=== PATIENT | male | born 1985 | race Caucasian/White ===

== ENCOUNTER 2016-05-27 08:30 | Emergency (ER) | payer BC ==
[~2016-05-27 08:30] MED LIST: Sodium Chloride 0.9% 1,000 ML BAG ONE
[2016-05-27] MEDS ORDERED: Ondansetron HCl/PF 4 MG/2 ML Vial ONE (08:52)
[2016-05-27 09:07] LABS: #Basophils 0.1 thou/uL (0.0-0.2); #Eosinphils 0.5 thou/uL (0.0-0.7); #Lymphocytes 2.2 thou/uL (1.20-3.40); #Monocytes 0.4 thou/uL (0.11-0.59); #Neutrophils 2.6 thou/uL (1.40-6.50); %Basophils 1.4 % (0.0-1.0); %Eosinophils 8.4 % (0.0-10.0); %Lymphocytes 38.1 % (21.0-51.0); %Monocytes 6.6 % (0.0-10.0); %Neutrophils 45.5 % (42.0-75.0); Hemoglobin 16.5 g/dL (14.0-18.0); Mean Corpuscular HGB CONC 34.7 g/dL (32.0-36.0); Mean Corpuscular Hemoglobin 30.5 pg (27.0-31.0); Mean Platelet Volume 7.5 fL (7.4-10.4); Platelet Count 241 thou/uL (130-400); RBC Distribution Width 11.1 % (11.5-14.5); Red Blood Cell (RBC) Count 5.41 mill/uL (4.70-6.10); White Blood Cell (WBC) Count 5.8 thou/uL (4.8-10.8)
[2016-05-27 09:23] LABS: ALT (SGPT) 161 U/L (0-55); AST (SGOT) 54 U/L (5-34); Albumin 4.6 g/dL (3.5-5.0); Alkaline Phosphatase 73 U/L (40-150); Anion Gap 18 mmol/L (10-20); BUN (Urea Nitrogen) 15 mg/dL (8.9-20.6); Bilirubin, Total 0.3 mg/dL (0.2-1.2); Calc. Creatinine Clearance 0 mL/min (70-130); Calcium 10.1 mg/dL (7.8-10.44); Carbon Dioxide 22 mmol/L (22-29); Chloride 107 mmol/L (98-107); Estimated GFR-MDRD 73; Globulin 3.1 g/dL (2.4-3.5); Glucose 108 mg/dL (70-105); Potassium 4.3 mmol/L (3.5-5.1); Protein, Total 7.7 g/dL (6.0-8.3); Sodium 143 mmol/L (136-145)
[2016-05-27] MEDS ORDERED: Ketorolac Tromethamine 30 MG/ML VIAL ONE (10:13)
--- NOTE | 2016-05-27 10:29 | CT ---
CT ABDOMEN AND PELVIS WITHOUT IV CONTRAST 05/27/16 HISTORY: Generalized abdominal pain. FINDINGS: There are multiple nonobstructing bilateral renal calculi, the largest measuring up to 3 mm in each kidney. There is mild caliectasis on the right without overt hydronephrosis. There is mild perinephr ic stranding seen involving the proximal right ureter and right ureter is minimally dilated with re spect to the left ureter. There is a 3 mm calculus seen at the right UVJ. No left ureteral calculus is seen. The appendix is visualized and normal in caliber. The lung bases, liver, spleen, pancreas, bilateral adrenal glands, and incompletely distended urinary bladder demonstrate a grossly normal nonenhanced CT appearance. No free fluid, fluid collection, or lymphadenopathy is seen in the abdomen or pelvis . IMPRESSION: 1. Partially obstructing right UVJ calculus. There is mild caliectasis and mild prominence of t he right ureter with respect to the left. 2. Nonobstructing bilateral renal calculi. 3. No CT evidence of appendicitis. POS: ANGELINA
[2016-05-27 11:27] LABS: Bilirubin Negative (Negative); Blood, Urine Negative (Negative); Clarity Clear (Clear); Glucose, Urine (Dipstick) Negative (Negative); Leukocyte Negative (Negative); Nitrite Negative (Negative); Protein, Urine (Dipstick) Trace mg/dL (Neg-Trace); Urobilinogen 0.2 mg/dL (0.2-1.0)
[2016-05-27 11:31] LABS: Specific Gravity, Urine 1.025 (1.002-1.036)
--- NOTE | 2016-05-27 13:38 | PICIS ---
[facility] EMERGENCY RECORD COMMUNICATIONS (10:15 AWAT) COMMUNICATIONS: Notes: DR HANSON ONTO THE PHONE NOW WITH DR RICCI, UROLOGY TROUBLE OPERATOR FOR [facility]... PHONE CONSULT DONE. WE WILL CONTINUE TO HELP GET PT'S PAIN UNDER CONTROL HERE, AND PT CAN F/U WITH DR RICCI IF NEEDED ONCE DISCHARGED FROM HERE. 30MG TORADOL GIVEN IVP APPROX 2 MINUTES AGO, SO WE WILL CONTINUE TO MONITOR. PT'S SPOUSE IN ROOM. TRIAGE (FriMay 27, 2016 08:39 JPER) PATIENT: NAME: Pablo Tyler, AGE: 30, GENDER: male, : FriAug 18, 1985, TIME OF GREET: FriMay 27, 2016 08:30, PREFERRED LANGUAGE: [place]se, RACE: C, ECODE BILLING MAP: [facility], SSN: [id number], Zip Code: [address], KG WEIGHT: 90.72 (est.), PHONE: , , , PERSON ID: [id number], PCP: NO PCP. (FriMay 27, 2016 08:39 JPER) COMPLAINT: ABDOMINAL PAIN. (FriMay 27, 2016 08:39 JPER) ADMISSION: URGENCY: 3 Urgent, ADMISSION SOURCE: Home, TRANSPORT: Walk-in, BED: ED -05. (FriMay 27, 2016 08:39 JPER) ASSESSMENT: Assessment: RLQ PAIN X 1 HOUR, Symptoms began 1 hour ago. (FriMay 27, 2016 08:39 JPER) PAIN: Patient complains of pain described as, cramping, on a scale 0-10 patient rates pain as 10, Pain is constant, No aggravating factors, No relieving factors. (FriMay 27, 2016 08:39 JPER) SIRS SCORING: Heart Rate 55-109 (0), Temp range 96.8-101.1 (0), respiratory rate 12-24 (0), Mental Status altered: no (0). (FriMay 27, 2016 08:39 JPER) TRIAGE SCREENING: Patient denies suicidal ideation, Patient denies presence of domestic violence. (FriMay 27, 2016 08:39 JPER) PROVIDERS: TRIAGE NURSE: Isi Holden RN. (FriMay 27, 2016 08:39 JPER) VITAL SIGNS: BP 144/80, Pulse 73, Resp 18, O2 Sat 99, on Room Air, Time 05/27/2016 08:37. (08:37 JPER) KNOWN ALLERGIES Penicillins CURRENT MEDICATIONS (08:40 JPER) None VITAL SIGNS VITAL SIGNS: BP: 144/80, Pulse: 73, Resp: 18, O2 sat: 99 on Room Air, Time: 05/27/2016 08:37. (08:37 JPER) BP: 116/53, Pulse: 73, Resp: 16, Temp: 98.4 (Tympanic), O2 sat: 99 on Room Air, Time: 05/27/2016 09:00. (09:00 JPER) BP: 152/79, Pulse: 72, Resp: 14, O2 sat: 99 on Room Air, Time: 05/27/2016 09:30. (09:30 JPER) BP: 131/67, Pulse: 66, Resp: 14, Temp: 98.2 (Tympanic), O2 sat: 99 on Room Air, Time: 05/27/2016 10:00. (10:00 JPER) Pain: 5, Time: 05/27/2016 10:10. (10:10 AWAT) &a-1R&a+25V*p+0X*y0552I*c152B*c15G*c2P*p-0X&a-25V&a+1RName: Pablo Tyler : M30 MedRec: [id number] AcctNum: [id number] Prepared: FriMay 27, 2016 11:33 by Interface Page 1 of 9 pMD [facility] EMERGENCY RECORD Pain: 0, Time: 05/27/2016 10:35. (10:35 AWAT) BP: 118/65, Pulse: 57, Resp: 14, Temp: 98.2 (Tympanic), Pain: 0, O2 sat: 100 on Room Air, Time: 05/27/2016 10:30. (10:30 JPER) BP: 134/41, Pulse: 61, Resp: 16, Temp: 98.2 (Tympanic), Pain: 0, O2 sat: 100 on Room Air, Time: 05/27/2016 11:00. (11:00 JPER) NURSING ASSESSMENT: ABDOMEN (09:17 JPER) CONSTITUTIONAL: Patient arrives ambulatory, Gait steady, History obtained from patient, Patient appears, in distress due to pain, Patient cooperative, Patient alert, Oriented to person, place and time, Skin warm, Skin dry, Skin normal in color, Mucous membranes pink, Mucous membranes moist, Patient is well-groomed, Patient complains of RLQ PAIN X 1 HOUR. PAIN: burning pain, sharp pain, to the right lower quadrant, on a scale 0-10 patient rates pain as 10, Pain exacerbated by nothing, Nothing has been tried to alleviate the pain. NONVERBAL PAIN: Non Verbal pain assessment findings include: Non-verbal expressions of pain at rest (1), Non-Verbal complaints present with movement (1), Facial Grimaces present at rest (1), Facial grimaces present with movement (1), Bracing present at rest (1), Bracing present with movement (1), Restlessness present at rest (1), Restlessness present with movement (1), Rubbing present at rest (1), Rubbing present with movement (1), Result: 10. ABDOMEN: tender, diffusely, Associated with nausea. GENITOURINARY MALE: Notes: DEFFERED. NOTES: Emotional support needed and given, Patient tolerated procedure well. SAFETY: Side rails up, Cart/Stretcher in lowest position, Call light within reach, Hospital ID band on. NURSING PROCEDURE: DISCHARGE NOTE (11:15 JPER) DISCHARGE: Patient discharged to home, in a wheelchair, family driving, accompanied by //partner, Summary of Care printed/ provided, Patient requested and was provided an electronic copy of Discharge Instructions, Transition record given to patient, Discharge instructions given to patient, Above person(s) verbalized understanding of discharge instructions and follow-up care, Patient instructed not to drive home, Patient treated and evaluated by physician. BELONGINGS: Belongings remain with patient, Valuables remain with patient. NOTES: Emotional support needed and given, Patient tolerated procedure well. NURSING PROCEDURE: IV PATIENT IDENITIFIER: Patient's identity verified by patient stating name, Patient's identity verified by hospital ID brailda. &a-1R&a+25V*p+0X*p9054K*c152B*c15G*c2P*p-0X&a-25V&a+1RName: Pablo Tyler : M30 MedRec: [id number] AcctNum: [id number] Prepared: FriMay 27, 2016 11:33 by Interface Page 2 of 9 pMD [facility] EMERGENCY RECORD (08:50 JPER) Patient's identity verified by patient stating name, Patient's identity verified by hospital ID bracelmindy. (11:15 JPER) IV SITE 1: IV therapy indicated for hydration, IV therapy indicated for medication administration, IV established, to the right hand, using a 20 gauge catheter, in one attempt, IV site prepped with CHLOROPREP, Saline lock established, Labs drawn at time of placement, labeled in the presence of the patient and sent to lab. (08:50 JPER) IV SITE 2: IV therapy indicated for hydration, IV therapy indicated for medication administration, IV established, to the left wrist, using a 20 gauge catheter, in one attempt, IV site prepped with CHLORAPREP, Saline lock established, Flushed with normal saline (mls): 10, Notes: iv #1 has been dislodged & removed with 100% cath intact. (10:04 AWAT) FOLLOW-UP SITE 1: After procedure, sterile transparent dressing applied. (08:50 JPER) After procedure, no drainage at IV site, After procedure, no swelling at IV site, After procedure, no redness at IV site, IV discontinued, due to patient being discharged, catheter intact. (11:15 JPER) FOLLOW-UP SITE 2: After procedure, sterile transparent dressing applied. (10:05 AWAT) NOTES: Emotional support needed and given, Patient tolerated procedure well. (11:15 JPER) SAFETY: Side rails up, Cart/Stretcher in lowest position, Family at bedside, Call light within reach, Hospital ID band on. (08:50 JPER) NURSING PROCEDURE: NURSE NOTES NURSES NOTES: Notes: Pt stood at side of bed trying to urinate per urinal, but not successful. He has had approx. 750ml of NS in. He asked if he could have any more pain meds to get rid of all of the pain. Pt advised that 2m of Dilaudid was a very big dose & we will monitor his pain. Pt also advised by Dr Hanson that we may not be able to completely dissolve his pain, but we will medicate him to help make it more tolerable. (09:32 AWAT) Notes: CONT UNABLE TO PRODUCE UA; ERMD NOTIFIED; REQ CONSULT WITH UROLOGY TROUBLE OPERATOR DR RICCI. (10:11 JPER) NURSING PROCEDURE: TRANSPORT TO TESTS PATIENT IDENTIFIER: Patient actively involved in identification process, Patient's identity verified by patient stating name, Patient's identity verified by patient stating date, Patient's identity verified by hospital ID bracelet, Patient's identity verified by family member. (09:40 AWAT) TRANSPORT TO TESTS: Patient transported to CT scan, via cart, Accompanied by x-ray photo optics technician. (09:40 AWAT) FOLLOW-UP: After procedure, patient returned to emergency department. (09:53 AWAT) NOTES: Patient tolerated procedure well. (09:40 AWAT) SAFETY: Side rails up, Cart/Stretcher in lowest position, Family at bedside, Call light within reach, Hospital ID band on, Physician &a-1R&a+25V*p+0X*m0551K*c152B*c15G*c2P*p-0X&a-25V&a+1RName: Pablo Tyler : M30 MedRec: [id number] AcctNum: [id number] Prepared: FriMay 27, 2016 11:33 by Interface Page 3 of 9 pMD [facility] EMERGENCY RECORD notified of above findings. (09:40 AWAT) ORDER DETAILS Order Name: CBC with Differential, Status: Active, Time: 09:00 05/27/2016, User: BROWN, - Ordered for: MD Hanson Alberto, - Entered by: MD Hanson Alberto - FriMay 27, 2016 09:00, - Quantity: 1, Order Name: Comprehensive Metabolic Panel, Status: Active, Time: 09:00 05/27/2016, User: BROWN, - Ordered for: MD Hanson Alberto, - Entered by: MD Hanson Alberto - FriMay 27, 2016 09:00, - Quantity: 1, Order Name: CT Abdomen Pelvis WO Con, Status: Active, Time: 09:36 05/27/2016, User: BROWN, - Ordered for: MD Hanson Alberto, - Entered by: MD Hanson Alberto - [facility] May 27, 2016 09:36, - Quantity: 1, Order Name: Urinalysis w/ Rflx Microscopic, Status: Active, Time: 11:05 05/27/2016, User: FEROZ, - Ordered for: MD Hanson Alberto, - Entered by: MARIAN Holden Jana - FriMay 27, 2016 11:05, - Quantity: 1, Order Name: Urinalysis with Microscopic, Status: Canceled, Time: 10:58 05/27/2016, User: FEROZ, - Ordered for: MD Hanson Alberto, - Entered by: MD Hanson Alberto - [facility] May 27, 2016 09:01, - Reason for Cancel: -- Reason --, - Quantity: 1. MEDICATION ADMINISTRATION SUMMARY Drug Name: ketorolac injection, Dose Ordered: 30 mg, Route: IV Push, Status: Given, Time: 10:15 05/27/2016, Drug Name: HYDROmorphone intravenous, Dose Ordered: 1 mg, Route: IV Push, Status: Given, Time: 09:19 05/27/2016, Drug Name: Dilaudid injection, Dose Ordered: 1 mg, Route: IV Push, Status: Given, Time: 09:05 05/27/2016, Drug Name: ondansetron, Dose Ordered: 4 mg, Route: IV Push, Status: Given, Time: 09:04 05/27/2016, Drug Name: Normal Saline, Dose Ordered: 1000 mL, Route: IV Fluid Infusion, Status: Given, Time: 09:00 05/27/2016, Detailed record available in Medication Service section. MEDICATION SERVICE Dilaudid injection: Order: Dilaudid injection (hydromorphone HCl) - Dose: 1 mg : IV Push Schedule: Now Ordered by: Sean Hanson MD Entered by: Sean Hanson MD FriMay 27, 2016 08:57 &a-1R&a+25V*p+0X*h1681L*c152B*c15G*c2P*p-0X&a-25V&a+1RName: Pablo Tyler : M30 MedRec: [id number] AcctNum: [id number] Prepared: FriMay 27, 2016 11:33 by Interface Page 4 of 9 pMD [facility] EMERGENCY RECORD Documented as given by: Isi Holden RN FriMay 27, 2016 09:05 Patient, Medication, Dose, Route and Time verified prior to administration. Amount given: 1MG, IV SITE #1 IVP, subsequent different medication, Slowly, Catheter placement confirmed via flush prior to administration, IV site without signs or symptoms of infiltration during medication administration, No swelling during administration, No drainage during administration, IV flushed after administration, Correct patient, time, route, dose and medication confirmed prior to administration, Patient advised of actions and side-effects prior to administration, Allergies confirmed and medications reviewed prior to administration, Administered by ANDREA FONSECA. HYDROmorphone intravenous: Order: HYDROmorphone intravenous (hydromorphone HCl) - Dose: 1 mg : IV Push Schedule: Now Ordered by: Sean Hanson MD Entered by: Sean Hanson MD FriMay 27, 2016 09:16 Documented as given by: Isi Holden RN FriMay 27, 2016 09:19 Patient, Medication, Dose, Route and Time verified prior to administration. Amount given: 1MG, IV SITE #1 IVP, repeat same medication, Slowly, Catheter placement confirmed via flush prior to administration, IV site without signs or symptoms of infiltration during medication administration, No swelling during administration, No drainage during administration, IV flushed after administration, Correct patient, time, route, dose and medication confirmed prior to administration, Patient advised of actions and side-effects prior to administration, Allergies confirmed and medications reviewed prior to administration, Administered by ANDREA FONSECA. ketorolac injection: Order: ketorolac injection (ketorolac tromethamine) - Dose: 30 mg : IV Push Schedule: Now Ordered by: Sean Hanson MD Entered by: Sean Hanson MD FriMay 27, 2016 10:15 Documented as given by: Pablo Love RN FriMay 27, 2016 10:15 Patient, Medication, Dose, Route and Time verified prior to administration. Amount given: 30MG, IV SITE #1 IVP, subsequent different medication, Slowly, Catheter placement confirmed via flush prior to administration, IV site without signs or symptoms of infiltration during medication administration, No swelling during administration, No drainage during administration, IV flushed after administration, Correct patient, time, route, dose and medication confirmed prior to administration, Patient advised of actions and side-effects prior to administration, Allergies confirmed and medications reviewed prior to administration, Administered by RADHA FONSECA, Patient in position of comfort, Side rails up, Cart in lowest position, Family at bedside. Normal Saline: Order: Normal Saline (0.9 % sodium chloride) - Dose: 1000 mL : IV Fluid Infusion Schedule: Bolus Ordered by: Sean Hanson MD &a-1R&a+25V*p+0X*m6962R*c152B*c15G*c2P*p-0X&a-25V&a+1RName: JaysonPablo de la garza : M30 MedRec: [id number] AcctNum: [id number] Prepared: FriMay 27, 2016 11:33 by Interface Page 5 of 9 D [facility] EMERGENCY RECORD Entered by: Sean Hanson MD FriMay 27, 2016 08:58 Documented as given by: Isi Holden RN FriMay 27, 2016 09:00 Patient, Medication, Dose, Route and Time verified prior to administration. Amount given: 1000ML, IV SITE #1 IV fluids established for hydration, IV SITE #1 into right hand, IV SITE #1 1st bag hung, amount 1 Liter hung, IV SITE #1 bolus of 1000 ml established, IV SITE #1 Rate of bolus, wide open, via primary tubing, Catheter placement confirmed via flush prior to administration, IV site without signs or symptoms of infiltration during medication administration, No swelling during administration, No drainage during administration, IV flushed after administration, Correct patient, time, route, dose and medication confirmed prior to administration, Patient advised of actions and side-effects prior to administration, Allergies confirmed and medications reviewed prior to administration, Administered by ANDREA FONSECA, Patient in position of comfort, Side rails up, Cart in lowest position. : Follow Up : Response assessment performed, No signs or symptoms of allergic reaction noted, Site inspection shows, No swelling at administration site, No drainage at administration site, No bleeding at site, No bruising noted at site, _IV SITE #1:_, IV fluid infusion discontinued, on FriMay 27, 2016 10:21, Total fluid hydration time IV site 1 1 hour, 25 minutes, ., Total amount infused: 1000ML, IV Line flushed after administration, Advised not to ambulate without assistance, Patient in position of comfort, Side rails up, Cart in lowest position, Family at bedside. (10:21 AWAT) ondansetron: Order: ondansetron - Dose: 4 mg : IV Push Schedule: Now Ordered by: Sean Hanson MD Entered by: Sean Hanson MD FriMay 27, 2016 08:57 Documented as given by: Isi Holden RN FriMay 27, 2016 09:04 Patient, Medication, Dose, Route and Time verified prior to administration. Amount given: 4MG, IV SITE #1 IVP, initial medication, Slowly, Catheter placement confirmed via flush prior to administration, IV site without signs or symptoms of infiltration during medication administration, No swelling during administration, No drainage during administration, IV flushed after administration, Correct patient, time, route, dose and medication confirmed prior to administration, Patient advised of actions and side-effects prior to administration, Allergies confirmed and medications reviewed prior to administration, Administered by ANDREA FONSECA. HPI ABDOMINAL PAIN (09:02 ALMO) CHIEF COMPLAINT: Patient presents for evaluation of abdominal pain. HISTORIAN: History provided by patient. LOCATION MALE: Symptoms are localized, most severe in the right lower quadrant, Radiation, to the groin. QUALITY: Pain is sharp in nature, described as unbearable. SEVERITY: Maximum severity of symptoms severe, Currently symptoms are &a-1R&a+25V*p+0X*s9039J*c152B*c15G*c2P*p-0X&a-25V&a+1RName: Pablo Tyler : M30 MedRec: [id number] AcctNum: [id number] Prepared: FriMay 27, 2016 11:33 by Interface Page 6 of 9 pMD [facility] EMERGENCY RECORD severe. TIME COURSE: Sudden onset of symptoms, Date and time of onset was 05/27/2016 07:30. ASSOCIATED WITH: Associated with diarrhea, Number of times: 2, for 1 day, No associated fever, Associated with flank pain, Associated with groin pain, No associated hematuria, No associated melena, Associated with nausea. RELIEVED BY: Patient's condition relieved by nothing. EXACERBATED BY: Patient's condition exacerbated by nothing. ROS CONSTITUTIONAL: Historian denies chills, denies fever. (09:05 ALMO) GI: Historian denies abdominal pain, reports anorexia, reports diarrhea, reports nausea, reports vomiting. (09:05 ALMO) GENITOURINARY MALE: Historian denies dysuria, denies hematuria. (09:05 ALMO) SKIN: diaphoretic. (09:05 ALMO) NEUROLOGIC: Negative neurologic review of systems. (09:05 ALMO) NOTES: All systems reviewed, negative except as described above. (09:07 ALMO) PAST MEDICAL HISTORY (FriMay 27, 2016 08:39 JPER) MEDICAL HISTORY: No past medical history, Flu vaccine up to date, Tetanus immunization up to date, Pneumococcal vaccine up to date. MALE SURGICAL HISTORY: Patient has no surgical history. PSYCHIATRIC HISTORY: Notes: DENIES. SOCIAL HISTORY: Patient denies alcohol use, Patient denies drug use, Patient has no smoking history. PHYSICAL EXAM (09:08 ALMO) CONSTITUTIONAL: Vital Signs Reviewed, Patient afebrile, Pulse normal. HEAD: Head exam included findings of head atraumatic, normocephalic. EYES: Pupils equally round and reactive to light. ENT: ENT exam normal. NECK: Neck exam included findings of normal range of motion, Thyroid normal, no cervical adenopathy. RESPIRATORY CHEST: Respiratory exam included findings of no respiratory distress, Breath sounds clear. CARDIOVASCULAR: Cardiovascular exam included findings of heart rate regular rate and rhythm, Heart sounds normal. ABDOMEN MALE: Abdominal exam included findings of abdomen tender, to the right lower quadrant, to McBurney's point, Bowel sounds normal, Liver normal, Spleen normal, no distension, McBurney's point tender, no peritoneal signs, no umbilical hernia. GENITOURINARY MALE: External genitalia normal, Epididymis normal, Testicles normal. &a-1R&a+25V*p+0X*x0286D*c152B*c15G*c2P*p-0X&a-25V&a+1RName: JaysonPablo de la garza : M30 MedRec: [id number] AcctNum: [id number] Prepared: FriMay 27, 2016 11:33 by Interface Page 7 of 9 pMD [facility] EMERGENCY RECORD BACK: Back exam included findings of normal inspection, range of motion normal, Costovertebral angle tenderness, on the right. NEURO: Neuro exam findings include patient oriented to person, place and time, no focal motor deficits, no focal sensory deficits. SKIN: Skin exam included findings of skin, Skin cool, and, diaphoretic, and normal in color. EVENTS TRANSFER: Triage to Emergency Main ED -05. (08:39 JPER) Removed from Emergency Main ED -05. (11:31 JPER) PROBLEM LIST No recorded problems DIAGNOSIS (10:52 ALMO) FINAL: PRIMARY: CALCULUS OF URETER. DISPOSITION PATIENT: Disposition Type: Discharge, Disposition: *Discharge Home. (10:52 ALMO) Patient left the department. (11:31 JPER) INSTRUCTION (10:55 ALMO) DISCHARGE: KIDNEY STONE W/ COLIC. FOLLOWUP: MD Keiry, [facility], Urology, [address] [place] [address], [place] [address], , Follow up with Primary Care Physician as needed, Follow up with Specialist as needed. SPECIAL: Drink 4 quarts of water a day Take ibuprofen 4 tablets every [address] for [address] Call Dr Ricci if you have any problems . PRESCRIPTION No recorded prescriptions IMAGING WORK/SCHOOL RELEASE: Image captured from scanner. (11:04 JPER) *DISCHARGE INSTRUCTIONS RECEIPT: Image captured from scanner. (11:18 JPER) *SUPPLY CHARGE SHEET: Image captured from scanner. (11:18 JPER) RESULTS (09:55 AWAT) LABORATORY: Comprehensive Metabolic Panel Collection DT: FriMay 27, 2016 09:04, Sodium 143 mmol/L, Range (136-145), Potassium 4.3 mmol/L, Range (3.5-5.1), Chloride 107 mmol/L, Range (98-107), Carbon Dioxide 22 mmol/L, Range (22-29), Anion Gap 18 mmol/L, Range (10-20), BUN (Urea Nitrogen) 15 mg/dL, Range (8.9-20.6), Creatinine 1.17 mg/dL, Range (0.7-1.3), &a-1R&a+25V*p+0X*u9412D*c152B*c15G*c2P*p-0X&a-25V&a+1RName: Pablo Tyler : M30 MedRec: [id number] AcctNum: [id number] Prepared: FriMay 27, 2016 11:33 by Interface Page 8 of 9 pMD [facility] EMERGENCY RECORD Estimated GFR-MDRD 73 , Reference Range for Estimated GFR: Greater than 90, mL/min/1.73 m2 NOTE: The MDRD equation has not been validated for use, with the elderly (over 70 years of age), women, patients with, serious comorbid condition or persons with extremes of body size, muscle, mass, or nutritional status. , *Glucose 108 - H mg/dL, Range (70-105), Calcium 10.1 mg/dL, Range (7.8-10.44), Bilirubin, Total 0.3 mg/dL, Range (0.2-1.2), Protein, Total 7.7 g/dL, Range (6.0-8.3), NOTE: Plasma values are generally 0.3 to 0.5 g/dL higher than serum values, due to the presence of fibrinogen. , Albumin 4.6 g/dL, Range (3.5-5.0), Globulin 3.1 g/dL, Range (2.4-3.5), Alb/Glob Ratio 1.5 g/dL, Range (1.2-2.2), Alkaline Phosphatase 73 U/L, Range (40-150), *AST (SGOT) 54 - H U/L, Range (5-34), *ALT (SGPT) 161 - H U/L, Range (0-55). CBC with Differential Collection DT: FriMay 27, 2016 09:04, White Blood Cell (WBC) Count 5.8 thou/uL, Range (4.8-10.8), Red Blood Cell (RBC) Count 5.41 mill/uL, Range (4.70-6.10), Hemoglobin 16.5 g/dL, Range (14.0-18.0), Hematocrit 47.6 %, Range (42.0-52.0), Mean Corpuscular Volume 88.0 fl, Range (80.0-94.0), Mean Corpuscular Hemoglobin 30.5 pg, Range (27.0-31.0), Mean Corpuscular HGB CONC 34.7 g/dL, Range (32.0-36.0), *RBC Distribution Width 11.1 - L %, Range (11.5-14.5), Platelet Count 241 thou/uL, Range (130-400), Mean Platelet Volume 7.5 fL, Range (7.4-10.4), %Neutrophils 45.5 %, Range (42.0-75.0), %Lymphocytes 38.1 %, Range (21.0-51.0), %Monocytes 6.6 %, Range (0.0-10.0), %Eosinophils 8.4 %, Range (0.0-10.0), *%Basophils 1.4 - H %, Range (0.0-1.0), #Neutrophils 2.6 thou/uL, Range (1.40-6.50), #Lymphocytes 2.2 thou/uL, Range (1.20-3.40), #Monocytes 0.4 thou/uL, Range (0.11-0.59), #Eosinphils 0.5 thou/uL, Range (0.0-0.7), #Basophils 0.1 thou/uL, Range (0.0-0.2). Holden: BROWN=MD Valentin, Sean CANALES=MARIAN Love, Pablo REDMAN=MARIAN Holden, Isi &a-1R&a+25V*p+0X*q6041I*c152B*c15G*c2P*p-0X&a-25V&a+1RName: Pablo Tyler : M30 MedRec: [id number] AcctNum: [id number] Prepared: FriMay 27, 2016 11:33 by Interface Page 9 of 9 pMD [facility]
--- NOTE | 2016-05-27 13:38 | ERRECORD ---
[facility] EMERGENCY RECORD HPI ABDOMINAL PAIN (09:02 ALMO) CHIEF COMPLAINT: Patient presents for evaluation of abdominal pain. HISTORIAN: History provided by patient. LOCATION MALE: Symptoms are localized, most severe in the right lower quadrant, Radiation, to the groin. QUALITY: Pain is sharp in nature, described as unbearable. SEVERITY: Maximum severity of symptoms severe, Currently symptoms are severe. TIME COURSE: Sudden onset of symptoms, Date and time of onset was 05/27/2016 07:30. ASSOCIATED WITH: Associated with diarrhea, Number of times: 2, for 1 day, No associated fever, Associated with flank pain, Associated with groin pain, No associated hematuria, No associated melena, Associated with nausea. RELIEVED BY: Patient's condition relieved by nothing. EXACERBATED BY: Patient's condition exacerbated by nothing. ROS CONSTITUTIONAL: Historian denies chills, denies fever. (09:05 ALMO) GI: Historian denies abdominal pain, reports anorexia, reports diarrhea, reports nausea, reports vomiting. (09:05 ALMO) GENITOURINARY MALE: Historian denies dysuria, denies hematuria. (09:05 ALMO) SKIN: diaphoretic. (09:05 ALMO) NEUROLOGIC: Negative neurologic review of systems. (09:05 ALMO) NOTES: All systems reviewed, negative except as described above. (09:07 ALMO) PAST MEDICAL HISTORY (FriMay 27, 2016 08:39 JPER) MEDICAL HISTORY: No past medical history, Flu vaccine up to date, Tetanus immunization up to date, Pneumococcal vaccine up to date. MALE SURGICAL HISTORY: Patient has no surgical history. PSYCHIATRIC HISTORY: Notes: DENIES. SOCIAL HISTORY: Patient denies alcohol use, Patient denies drug use, Patient has no smoking history. KNOWN ALLERGIES Penicillins CURRENT MEDICATIONS (08:40 JPER) None VITAL SIGNS VITAL SIGNS: BP: 144/80, Pulse: 73, Resp: 18, O2 sat: 99 on Room Air, Time: 05/27/2016 08:37. (08:37 JPER) BP: 116/53, Pulse: 73, Resp: 16, Temp: 98.4 (Tympanic), O2 sat: 99 on Room Air, Time: 05/27/2016 09:00. (09:00 JPER) BP: 152/79, Pulse: 72, Resp: 14, O2 sat: 99 on Room Air, Time: 05/27/2016 &a-1R&a+25V*p+0X*[id number]*c152B*c15G*c2P*p-0X&a-25V&a+1RName: Pablo Tyler : M30 MedRec: [id number] AcctNum: [id number] Prepared: FriMay 27, 2016 11:33 by Interface Page 1 of 3 pMD [facility] EMERGENCY RECORD 09:30. (09:30 JPER) BP: 131/67, Pulse: 66, Resp: 14, Temp: 98.2 (Tympanic), O2 sat: 99 on Room Air, Time: 05/27/2016 10:00. (10:00 JPER) Pain: 5, Time: 05/27/2016 10:10. (10:10 AWAT) Pain: 0, Time: 05/27/2016 10:35. (10:35 AWAT) BP: 118/65, Pulse: 57, Resp: 14, Temp: 98.2 (Tympanic), Pain: 0, O2 sat: 100 on Room Air, Time: 05/27/2016 10:30. (10:30 JPER) BP: 134/41, Pulse: 61, Resp: 16, Temp: 98.2 (Tympanic), Pain: 0, O2 sat: 100 on Room Air, Time: 05/27/2016 11:00. (11:00 JPER) PHYSICAL EXAM (09:08 ALMO) CONSTITUTIONAL: Vital Signs Reviewed, Patient afebrile, Pulse normal. HEAD: Head exam included findings of head atraumatic, normocephalic. EYES: Pupils equally round and reactive to light. ENT: ENT exam normal. NECK: Neck exam included findings of normal range of motion, Thyroid normal, no cervical adenopathy. RESPIRATORY CHEST: Respiratory exam included findings of no respiratory distress, Breath sounds clear. CARDIOVASCULAR: Cardiovascular exam included findings of heart rate regular rate and rhythm, Heart sounds normal. ABDOMEN MALE: Abdominal exam included findings of abdomen tender, to the right lower quadrant, to McBurney's point, Bowel sounds normal, Liver normal, Spleen normal, no distension, McBurney's point tender, no peritoneal signs, no umbilical hernia. GENITOURINARY MALE: External genitalia normal, Epididymis normal, Testicles normal. BACK: Back exam included findings of normal inspection, range of motion normal, Costovertebral angle tenderness, on the right. NEURO: Neuro exam findings include patient oriented to person, place and time, no focal motor deficits, no focal sensory deficits. SKIN: Skin exam included findings of skin, Skin cool, and, diaphoretic, and normal in color. MEDICATION ADMINISTRATION SUMMARY Drug Name: ketorolac injection, Dose Ordered: 30 mg, Route: IV Push, Status: Given, Time: 10:15 05/27/2016, Drug Name: HYDROmorphone intravenous, Dose Ordered: 1 mg, Route: IV Push, Status: Given, Time: 09:19 05/27/2016, Drug Name: Dilaudid injection, Dose Ordered: 1 mg, Route: IV Push, Status: Given, Time: 09:05 05/27/2016, Drug Name: ondansetron, Dose Ordered: 4 mg, Route: IV Push, Status: Given, Time: 09:04 05/27/2016, Drug Name: Normal Saline, Dose Ordered: 1000 mL, Route: IV Fluid Infusion, Status: Given, Time: 09:00 05/27/2016, Detailed record available in Medication Service section. &a-1R&a+25V*p+0X*[id number]*c152B*c15G*c2P*p-0X&a-25V&a+1RName: Pablo Tyler : M30 MedRec: [id number] AcctNum: [id number] Prepared: FriMay 27, 2016 11:33 by Interface Page 2 of 3 pMD [facility] EMERGENCY RECORD PROBLEM LIST No recorded problems DIAGNOSIS (10:52 BROWN) FINAL: PRIMARY: CALCULUS OF URETER. PRESCRIPTION No recorded prescriptions DISPOSITION PATIENT: Disposition Type: Discharge, Disposition: *Discharge Home. (10:52 BROWN) Patient left the department. (11:31 FEROZ) Holden: BROWN=MD Valentin, Sean CANALES=MARIAN Love, Pablo REDMAN=MARIAN Holden, Isi &a-1R&a+25V*p+0X*[id number]*c152B*c15G*c2P*p-0X&a-25V&a+1RName: Pablo Tyler : M30 MedRec: [id number] AcctNum: [id number] Prepared: FriMay 27, 2016 11:33 by Interface Page 3 of 3 pMD MTDD
== END 2016-05-27 11:15 | disposition home or self-care (01) ==
LOC: MADERS 08:30
DX: N20.1 Calculus of ureter (principal)
CPT/HCPCS: 74176; 80053; 81003; 85025; 96361; 96374; 96375; J1170; J1885; J2405; J7050

== ENCOUNTER 2019-05-01 01:39 | Emergency (ER) | payer BC, SELFPAY ==
[2019-05-01 02:11] LABS: #Basophils 0.1 thou/uL (0.0-0.2); #Eosinphils 0.3 thou/uL (0.0-0.7); #Lymphocytes 2.6 thou/uL (1.20-3.40); #Monocytes 0.5 thou/uL (0.11-0.59); #Neutrophils 3.3 thou/uL (1.40-6.50); %Basophils 1.3 % (0.0-1.0); %Eosinophils 3.8 % (0.0-10.0); %Lymphocytes 38.7 % (21.0-51.0); %Monocytes 7.4 % (0.0-10.0); %Neutrophils 48.8 % (42.0-75.0); Hemoglobin 15.6 g/dL (14.0-18.0); Mean Corpuscular HGB CONC 31.3 g/dL (32.0-36.0); Mean Corpuscular Hemoglobin 28.6 pg (27.0-31.0); Mean Corpuscular Volume 91.5 fL (78.0-98.0); Platelet Count 225 thou/uL (130-400); RBC Distribution Width 11.7 % (11.5-14.5); Red Blood Cell (RBC) Count 5.45 mill/uL (4.70-6.10); White Blood Cell (WBC) Count 6.7 thou/uL (4.8-10.8)
[2019-05-01 02:32] LABS: ALT (SGPT) 96 U/L (8-55); AST (SGOT) 43 U/L (5-34); Acetaminophen Less than 6.0 mcg/mL (10.0-30.0); Albumin 4.9 g/dL (3.5-5.0); Alcohol 79 mg/dL (Less than 10); Alkaline Phosphatase 79 U/L (40-110); Anion Gap 18 mmol/L (10-20); BUN (Urea Nitrogen) 15 mg/dL (8.9-20.6); Bilirubin, Total 0.4 mg/dL (0.2-1.2); Calc. Creatinine Clearance 0 mL/min (70-130); Carbon Dioxide 24 mmol/L (22-29); Chloride 106 mmol/L (98-107); Estimated GFR-MDRD 88; Glucose 97 mg/dL (70-105); Potassium 3.7 mmol/L (3.5-5.1); Protein, Total 7.9 g/dL (6.0-8.3); Salicylate Less than 8.0 mg/dL (15.0-30.0); Sodium 144 mmol/L (136-145)
[2019-05-01 02:52] LABS: Calcium 9.7 mg/dL (7.8-10.44)
[2019-05-01 03:01] LABS: Amphetamine Not Detected (NotDetected); Barbiturates Screen Not Detected (NotDetected); Benzodiazepine Screen Not Detected (NotDetected); Cocaine Metabolite Screen Not Detected (NotDetected); Medtox Control Line Valid? VALID (VALID); Methadone Not Detected (NotDetected); Methamphetamine Not Detected (NotDetected); Opiate Screen Not Detected (NotDetected); Oxycodone Screen Not Detected (NotDetected); Phencyclidine (PCP) Not Detected (NotDetected); THC/Cannabinoid Screen Detected (NotDetected); Tricyclic Screen Not Detected (NotDetected)
== END 2019-05-01 04:10 | disposition home or self-care (01) ==
LOC: MADERS 01:39
DX: R45.851 Suicidal ideations (principal); F41.9 Anxiety disorder, unspecified; F32.9 Major depressive disorder, single episode, unspecified; F17.220 Nicotine dependence, chewing tobacco, uncomplicated; Z79.899 Other long term (current) drug therapy
CPT/HCPCS: 36415; 80053; 80306; 80307; 84443; 85025; 99285

== ENCOUNTER 2020-09-19 01:11 | Emergency (ER) | payer OTHER, SELFPAY ==
[2020-09-19] MEDS ORDERED: Ibuprofen 800 MG TAB ONE (01:44)
[2020-09-19 17:49] LABS: SARS-CoV-2 PCR by NAA DETECTED (NotDetected)
== END 2020-09-19 02:05 ==
LOC: MADERS 01:11
DX: U07.1 COVID-19 (principal); F17.220 Nicotine dependence, chewing tobacco, uncomplicated
CPT/HCPCS: 87635; 93005; U0003; U0005

== ENCOUNTER 2021-08-27 18:33 | Emergency (ER) | payer OTHER, SELFPAY ==
[2021-08-27] MEDS ORDERED: Boostrix 0.5 ML (Tdap) VIAL ONE (19:33)
[2021-08-27] MEDS ORDERED: Clindamycin 150 MG CAP ONE (20:54)
== END 2021-08-27 21:15 ==
LOC: MADERS 18:33
DX: S02.32XA Fracture of orbital floor, left side, initial encounter for closed fracture (principal); F17.220 Nicotine dependence, chewing tobacco, uncomplicated; Z23 Encounter for immunization; Y04.0XXA Assault by unarmed brawl or fight, initial encounter; Y92.149 Unspecified place in prison as the place of occurrence of the external cause
CPT/HCPCS: 70450; 70486; 90471; 90715